=== PATIENT | male | born 1995 | race American Indian/Alaskan Native ===

== ENCOUNTER 2017-07-03 12:42 | Emergency (ER) | payer OTHER ==
[2017-07-03 13:07] LABS: Basophils % (Auto) 0.8 % (0.0-1.8); Eosinophils % (Auto) 2.8 % (0.0-4.3); Hematocrit 44.7 % (35.5-45.6); Hemoglobin 14.8 gm/dl (11.8-15.2); Mean Corpuscular HGB Conc 33 % (32-34); Mean Corpuscular Hemoglobin 30 pg (28-32); Mean Corpuscular Volume 91 fl (84-94); Platelet Count 277 K/mm3 (140-440); Red Blood Count 4.93 M/mm3 (3.65-5.03); Red Cell Distribution Width 13.5 % (13.2-15.2); White Blood Count 4.9 K/mm3 (4.5-11.0)
[2017-07-03 13:22] LABS: Anion Gap 18 mmol/L; Blood Urea Nitrogen 10 mg/dL (9-20); Calcium 8.9 mg/dL (8.4-10.2); Carbon Dioxide 24 mmol/L (22-30); Chloride 106.3 mmol/L (98-107); Glucose 91 mg/dL (75-100); Potassium 3.9 mmol/L (3.6-5.0); Sodium 144 mmol/L (137-145)
--- NOTE | 2017-07-03 13:40 | Emergency Department Report ---
HPI - General Chief Complaint: Psych Time Seen by Provider: 07/03/17 13:21 - HPI HPI: Room 16 The patient is a 21-year-old male presenting with a chief complaint of increased aggression. The patient's mother brings the patient in because she states for the past 8 months patient is suffering from visual and auditory hallucinations. The patient denies this but the mother states that she hears him talking to himself all night and responding to internal stimuli. The patient states he feels "boxed in" and has a lot of aggression. 8 months ago the patient got arrested secondary to this aggression and wasn't [facility] for 4 months. The mother states once he got out the same behavior continued. The mother states the patient walks around all night and does not sleep. The patient states he became angry today and punched a sheet rock wall injuring his right hand Location: Mental state, right hand Duration: 8 months Quality: Responding to internal stimuli Severity: Moderate Modifying factors: [see above] Context: [see above] Mode of transportation: [not driving] ED Past Medical Hx - Past Medical History Previous Medical History?: No - Surgical History Past Surgical History?: No - Family History Family history: no significant - Social History Smoking Status: Current Some Day Smoker Substance Use Type: None (denies illicit drug use) - Medications Home Medications: Home Medications Medication Instructions Recorded Confirmed Last Taken Type No Known Home Medications [No 07/03/17 07/03/17 Unknown History Reported Home Medications] ED Review of Systems ROS: Stated complaint: MH EVAL/HEARING VOICES Other details as noted in HPI Comment: All other systems reviewed and negative Constitutional: denies: chills, fever Eyes: denies: eye pain, eye discharge, vision change ENT: denies: ear pain, throat pain Respiratory: denies: cough, shortness of breath, wheezing Cardiovascular: denies: chest pain, palpitations Endocrine: no symptoms reported Genitourinary: denies: urgency, dysuria Musculoskeletal: arthralgia Skin: other (abrasion to right hand) Neurological: denies: headache, weakness, paresthesias Psychiatric: auditory hallucinations, visual hallucinations. denies: suicidal thoughts Hematological/Lymphatic: denies: easy bleeding, easy bruising Physical Exam - Physical Exam Vital Signs: Vital Signs 07/03/17 12:46 Temperature 97.8 F Pulse Rate 73 Respiratory 16 Rate Blood Pressure 129/77 O2 Sat by Pulse 99 Oximetry Physical Exam: GENERAL: The patient is well-developed well-nourished male sitting on stretcher not appearing to be in acute distress. [] HEENT: Normocephalic. Atraumatic. Extraocular motions are intact. Patient has moist mucous membranes. NECK: Supple. No meningitic signs are noted. There is no adenopathy noted. CHEST/LUNGS: Clear to auscultation. There is no respiratory distress noted. HEART/CARDIOVASCULAR: Regular. There is no tachycardia. There is no gallop rub or murmur. ABDOMEN: Abdomen is soft, nontender. Patient has normal bowel sounds. There is no abdominal distention. SKIN: There is no rash. There is no edema. There is no diaphoresis. There are abrasions overlying the fingers of the right hand. No lacerations NEURO: The patient is awake, alert, and oriented. The patient is cooperative. The patient has no focal neurologic deficits. The patient has normal speech and gait. Cranial nerves II through XII grossly intact, no drift. Negative Romberg MUSCULOSKELETAL: There is slight tenderness to palpation at the MCP of the ring finger of the right hand. No obvious deformity seen ED Course Vital Signs 07/03/17 12:46 Temperature 97.8 F Pulse Rate 73 Respiratory 16 Rate Blood Pressure 129/77 O2 Sat by Pulse 99 Oximetry ED Medical Decision Making - Lab Data Result diagrams: 07/03/17 12:54 07/03/17 12:54 Laboratory Tests 07/03/17 07/03/17 07/03/17 12:54 12:54 12:54 WBC 4.9 RBC 4.93 Hgb 14.8 Hct 44.7 MCV 91 MCH 30 MCHC 33 RDW 13.5 Plt Count 277 Lymph % (Auto) 42.7 H Coke % (Auto) 8.8 H Eos % (Auto) 2.8 Baso % (Auto) 0.8 Lymph # 2.1 Coke # 0.4 Eos # 0.1 Baso # 0.0 Seg Neutrophils % 44.9 Seg Neutrophils # 2.2 Sodium 144 Potassium 3.9 Chloride 106.3 Carbon Dioxide 24 Anion Gap 18 BUN 10 Creatinine 0.8 Estimated GFR > 60 BUN/Creatinine Ratio 12.50 Glucose 91 Calcium 8.9 Urine Bilirubin Urine RBC (Auto) U Epithel Cells (Auto) Urine Opiates Screen Urine Methadone Screen Ur Barbiturates Screen Ur Phencyclidine Scrn Ur Amphetamines Screen U Benzodiazepines Scrn Urine Cocaine Screen Plasma/Serum Alcohol < 0.01 07/03/17 07/03/17 Unknown Unknown WBC RBC Hgb Hct MCV MCH MCHC RDW Plt Count Lymph % (Auto) Coke % (Auto) Eos % (Auto) Baso % (Auto) Lymph # Coke # Eos # Baso # Seg Neutrophils % Seg Neutrophils # Sodium Potassium Chloride Carbon Dioxide Anion Gap BUN Creatinine Estimated GFR BUN/Creatinine Ratio Glucose Calcium Urine Bilirubin Neg Urine RBC (Auto) 2.0 U Epithel Cells (Auto) < 1.0 Urine Opiates Screen Presumptive negative Urine Methadone Screen Presumptive negative Ur Barbiturates Screen Presumptive negative Ur Phencyclidine Scrn Presumptive negative Ur Amphetamines Screen Presumptive negative U Benzodiazepines Scrn Presumptive negative Urine Cocaine Screen Presumptive negative Plasma/Serum Alcohol - Radiology Data Radiology results: report reviewed (CT head), image reviewed (CT head, right hand x-ray) interpreted by me: Right hand x-ray-no acute fractures CT head (read by radiologist)-cranial CT scan within normal limits - Differential Diagnosis schizophrenia, bipolar disorder, psychosis NOS, adjustment disorder, boxer' Critical care attestation.: If time is entered above; I have spent that time in minutes in the direct care of this critically ill patient, excluding procedure time. ED Disposition Clinical Impression: Psychosis Disposition: DC/TX-65 PSY HOSP/PSY UNIT Is pt being admited?: No Does the pt Need Aspirin: No Condition: Fair Referrals: PRIMARY CARE, [Primary Care Provider] - 3-5 Days Time of Disposition: 14:06 (awaiting acceptance)
[2017-07-03 13:44] LABS: Urine Drugs of Abuse Note Disclamer
--- NOTE | 2017-07-03 13:55 | Cat Scan Report ---
CRANIAL CT SCAN: History: Headache. Serial contiguous axial images were obtained through the cranium. Intravenous contrast material was not administered. The ventricles are normal in size and appearance. There is no mass effect or midline shift. No areas of abnormally increased or decreased attenuation are seen. No mass lesion is seen. The mastoid air cells and visualized portions of the sinuses are normal. IMPRESSION: Cranial CT scan within normal limits.
[2017-07-03 13:57] LABS: Bilirubin,Urine NEG (Negative); Blood,Urine NEG (Negative); Ketones,Urine NEG (Negative); Leukocyte Esterase,Urine NEG (Negative); Mucus,Urine FEW /HPF; Nitrite,Urine NEG (Negative); Protein,Urine <15 mg/dL mg/dL (Negative); Urobilinogen,Urine < 2.0 mg/dL (<2.0); WBC,Urine < 1.0 /HPF (0.0-6.0)
--- NOTE | 2017-07-03 14:07 | XRay Report ---
RIGHT HAND, 3 views: History: Pain. The bony architecture is intact. Bony alignment is normal. No soft tissue abnormalities are seen. The joint spaces appear preserved. IMPRESSION: No acute abnormality is appreciated.
--- NOTE | 2017-07-04 13:06 | Consultation ---
History of Present Illness - Reason for Consult Consult date: 07/04/17 Reason for consult: Mental Health Evaluation Requesting physician: HIWOT GOMEZ - Chief Complaint Chief complaint: "I don't sleep sometimes" - History of Present Psychiatric Illness The patient is a 21-year-old male presenting with a chief complaint of increased aggression. Today patient is calm and cooperative during assessment. He stated that he don't remember talking to himself prior to coming to [facility]. He did admit to punching the wall at a hotel because he got angry. He could not tell me why he got angry. He stated that he noticed that he have "good and bad days." Per the patient, the "good days" he don't want to sleep and have lots of energy. He stated being very irritable and angry when he does not get much sleep. Per his mother Cathy Monroe [phone], she stated witnessing her son have conversation with himself, possibly responding to internal stimuli. She stated that he does not sleep "at all." She stated recently her son got angry and walked from [place], [place] to [place], [place] "barefooted" prior to being up for more than 24 hours. The patient denies HI/SIs. He would not confirm or deny perceptional disturbances. He did admit to erratic sleep, but denies a poor appetite. He admit to marijuana use, but denies alcohol consumption. Medications and Allergies Allergies Allergy/AdvReac Type Severity Reaction Status Date / Time No Known Allergies Allergy Unverified 07/03/17 12:46 Home Medications Medication Instructions Recorded Confirmed Last Taken Type No Known Home Medications [No 07/03/17 07/03/17 Unknown History Reported Home Medications] Past psychiatric history - Past Medical History Past Medical History: No medical history Past Surgical History: No surgical history - past Psychiatric treatment and history psychiatric treatment history: Denies a psy hx. Per collateral information from his mom, his father side of family has a hx of Bipolar DO. - Social History Social history: lives with family (G[facility]) Mental Status Exam - Vital signs Last Vital Signs Temp 98.6 F 07/03/17 19:21 Pulse 53 L 07/03/17 19:21 Resp 18 07/04/17 11:00 BP 108/69 07/03/17 19:21 Pulse Ox 99 07/03/17 19:21 - Exam Narrative exam: ROS: (+) possibly manic, (-) depression MSE: Appearance: calm, cooperative Behavior: regular eye contact Speech: regular rate and tone Mood: "up and down sometimes" Affect: labile Thought Process: circumstantial Thought Content: denies SI/HI's, would not confirm or deny AVH's Motor Activity: ambulatory Cognition: A/Ox 3 Insight: variable Judgment: variable Results Result Diagrams: 07/03/17 12:54 07/03/17 12:54 Abnormal lab results 07/03/17 Range/Units 12:54 Lymph % (Auto) 42.7 H (13.4-35.0) % [place] % (Auto) 8.8 H (0.0-7.3) % All other labs normal. Assessment and Plan Assessment and plan: Impression: Unspecified Mood DO. Possibly manic. Substance Use DO (marijuana). Today patient is calm and cooperative during assessment. Patient would not confirm or deny perceptional disturbances. DDx: Bipolar DO, R/O MDD Recommendation/Plan: Continue 1013 with placement to inpatient psy services. Start Depakote 500 mg PO BID for mood and Seroquel 200 mg PO HS for mood/ psychotic symptoms. Discussed possible metabolic side effects of Seroquel with patient.
[2017-07-04 14:18] LABS: Alanine Aminotransferase 6 units/L (7-56); Alkaline Phosphatase 51 units/L (35-129)
--- NOTE | 2017-07-05 16:09 | Progress Note ---
Subjective - Reason for Consult Consult date: 07/05/17 Reason for consult: follow up - Chief Complaint Chief complaint: "I've been stressed out and frustrated." The patient is a 21-year-old male presented with a chief complaint of increased aggression. Today patient is calm and cooperative during assessment. Eye contact is avoidant. He states he was frustrated with his mother. He did admit to punching the wall at a hotel because he got angry. He could not tell me why he got angry. He acknowledged his mother might have been worried about his behavior. He reports a decreased need for sleep and has minimal insight into the presentation described in his initial consultation. The patient denies HI/ SIs. He denied perceptual disturbances. Mental Status Exam - Exam Narrative exam: ROS: (-) depression MSE: Appearance: calm, cooperative Behavior: regular eye contact Speech: regular rate and tone Mood: "up and down sometimes" Affect: labile Thought Process: circumstantial Thought Content: denies SI/HI's, would not confirm or deny AVH's Motor Activity: ambulatory Cognition: A/Ox 3 Insight: variable Judgment: variable Assessment and plan: Impression: Unspecified Mood DO. Substance Use DO (marijuana). Today patient is calm and cooperative during assessment. Patient would not confirm or deny perceptional disturbances. DDx: Bipolar DO, R/O MDD Recommendation/Plan: Continue 1013 with placement to inpatient psy services. Continue Depakote 500 mg PO BID for mood and Seroquel 200 mg PO HS for mood/ psychotic symptoms. Mental Status Exam - Vital signs Last Vital Signs Temp 98 F 07/05/17 10:00 Pulse 87 07/05/17 10:00 Resp 18 07/05/17 10:00 BP 109/62 07/05/17 10:00 Pulse Ox 98 07/05/17 10:00
--- NOTE | 2017-07-06 16:45 | Progress Note ---
Subjective - Reason for Consult Consult date: 07/06/17 Reason for consult: follow up - Chief Complaint Chief complaint: "I'm fine." The patient is a 21-year-old male presented with a chief complaint of increased aggression. Today patient is calm and cooperative during assessment. There have been no behavioral disturbances during his ER stay. Eye contact is avoidant but he is otherwise cooperative with interview. He states he was frustrated with his mother. He did admit to punching the wall at a hotel because he got angry. He reports a decreased need for sleep and states that is how he has always been. He reports the medications have helped him sleep. The patient denies HI/ SIs. He denied perceptual disturbances. He has consistently denied SI/HI and perceptual disturbances. Mental Status Exam - Exam Narrative exam: ROS: (-) depression (-) psychosis MSE: Appearance: calm, cooperative Behavior: regular eye contact Speech: regular rate and tone Mood: "fine." Affect: constricted Thought Process: logical Thought Content: denies SI/HI/AVH Motor Activity: ambulatory Cognition: A/Ox 3 Insight: variable Judgment: variable Assessment and plan: Impression: Unspecified Mood DO. Substance Use DO (marijuana). Today patient is calm and cooperative during assessment. He has consistently denied homicidal and suicidal ideation. DDx: Bipolar DO, R/O MDD Recommendation/Plan: Rescind 1013. He is not a threat to himself or others. Psychosis not evident. His thoughts are organized, logical, and linear. He has maintained appropriate behavior during his stay. He is appropriately responsive during the interview. Continue Depakote 500 mg PO BID for mood and Seroquel 200 mg PO HS for mood/ psychotic symptoms. He is advised to abstain from all mood altering or illicit substances. Outpatient mental health referrals will be provided. Mental Status Exam - Vital signs Last Vital Signs Temp 97.5 F L 07/06/17 08:10 Pulse 91 H 07/06/17 08:10 Resp 16 07/06/17 08:12 BP 113/75 07/06/17 08:10 Pulse Ox 100 07/06/17 08:12
--- NOTE | 2017-07-07 11:13 | Progress Note ---
Subjective - Reason for Consult Consult date: 07/07/17 Reason for consult: Psychiatry Follow up - Chief Complaint Chief complaint: "Feel rested" The patient is a 21-year-old male presented with a chief complaint of increased aggression. Today patient is calm and cooperative during assessment. Today patient is calm and cooperative during the assessment. He stated getting " plenty of rest" and look forward to being discharged. He stated that he will follow-up with [facility] for outpatient psy services once discharged. I spoke with his mother Cathy Monroe and she stated that her son can return home. He denies SI/HI's, AVH's, and depression. Mental Status Exam - Vital signs Last Vital Signs Temp 98.3 F 07/06/17 22:00 Pulse 78 07/06/17 22:00 Resp 18 07/07/17 09:33 BP 103/74 07/06/17 22:00 Pulse Ox 100 07/07/17 09:33 - Exam Narrative exam: MSE: Appearance: calm, cooperative Behavior: regular eye contact Speech: regular rate and tone Mood: "rested" Affect: congruent to mood Thought Process: linear Thought Content: denies SI/HI's and AVH's Motor Activity: lying in bed Cognition: A/Ox 3 Insight: fair Judgment: fair Assessment and Plan Impression: Unspecified Mood DO. Substance Use DO (marijuana). Today patient is calm and cooperative during assessment. No threat to self or others. VA 71.4. Recommendation/Plan: Rescind 1013. Continue Depakote 500 mg PO BID for mood and Seroquel 200 mg PO HS for mood/psychotic symptoms. He is advised to abstain from all mood altering or illicit substances. Outpatient mental health referrals provided to patient ([facility]). Discussed the importance to follow-up with outpatient psy services for future lab work (Depakote) with patient and his mother Cathy Monroe. Discussed the possible metabolic side effects of Seroquel and the side effects of Depakote with patient and his mother.
[2017-07-07 12:04] VITALS: BP 100/67
--- NOTE | 2017-07-07 15:53 | Emergency Department Report ---
ED General Adult HPI - General Chief complaint: Psych Stated complaint: MH EVAL/HEARING VOICES Time Seen by Provider: 07/03/17 13:21 Source: patient, family Mode of arrival: Ambulatory Limitations: No Limitations - History of Present Illness Severity scale (0 -10): 0 - Related Data Home Medications Medication Instructions Recorded Confirmed Last Taken No Known Home Medications [No 07/03/17 07/03/17 Unknown Reported Home Medications] Allergies Allergy/AdvReac Type Severity Reaction Status Date / Time No Known Allergies Allergy Unverified 07/03/17 12:46 ED Review of Systems ROS: Stated complaint: MH EVAL/HEARING VOICES Other details as noted in HPI Constitutional: denies: chills, fever Eyes: denies: eye pain, eye discharge, vision change ENT: denies: ear pain, throat pain Respiratory: denies: cough, shortness of breath, wheezing Cardiovascular: denies: chest pain, palpitations Endocrine: no symptoms reported Genitourinary: denies: urgency, dysuria Musculoskeletal: arthralgia Skin: other (abrasion to right hand) Neurological: denies: headache, weakness, paresthesias Psychiatric: auditory hallucinations, visual hallucinations. denies: suicidal thoughts Hematological/Lymphatic: denies: easy bleeding, easy bruising ED Past Medical Hx - Past Medical History Previous Medical History?: No - Surgical History Past Surgical History?: No - Social History Smoking Status: Current Some Day Smoker Substance Use Type: None (denies illicit drug use) - Medications Home Medications: Home Medications Medication Instructions Recorded Confirmed Last Taken Type No Known Home Medications [No 07/03/17 07/03/17 Unknown History Reported Home Medications] ED Physical Exam - General Limitations: No Limitations ED Course Vital Signs 07/03/17 07/03/17 07/04/17 12:46 19:21 11:00 Temperature 97.8 F 98.6 F 98.4 F Pulse Rate 73 53 L 71 Respiratory 16 18 16 Rate Blood Pressure 129/77 Blood Pressure 108/69 102/81 [Right] O2 Sat by Pulse 99 99 18 L Oximetry 07/04/17 07/05/17 07/05/17 19:45 10:00 17:00 Temperature 98.9 F 98 F 98 F Pulse Rate 94 H 87 87 Respiratory 16 18 18 Rate Blood Pressure Blood Pressure 121/74 109/62 112/65 [Right] O2 Sat by Pulse 100 98 99 Oximetry 07/06/17 07/06/17 07/06/17 08:10 08:12 22:00 Temperature 97.5 F L 98.3 F Pulse Rate 91 H 78 Respiratory 15 16 16 Rate Blood Pressure Blood Pressure 113/75 103/74 [Right] O2 Sat by Pulse 100 100 97 Oximetry 07/07/17 07/07/17 09:33 12:03 Temperature 98.5 F Pulse Rate 97 H Respiratory 18 20 Rate Blood Pressure Blood Pressure 100/67 [Right] O2 Sat by Pulse 100 100 Oximetry ED Medical Decision Making - Lab Data Result diagrams: 07/03/17 12:54 07/03/17 12:54 - Medical Decision Making Patient with 1013 was ended. Psychiatry is comfortable with plan. They've discussed continuing his Depakote and Seroquel. Please follow-up with her outpatient resources as needed. Critical care attestation.: If time is entered above; I have spent that time in minutes in the direct care of this critically ill patient, excluding procedure time. ED Disposition Clinical Impression: Psychosis Disposition: DC-01 TO HOME OR SELFCARE Is pt being admited?: No Condition: Fair Instructions: Brief Psychotic Disorder (ED) Additional Instructions: Please continue to take your Seroquel and Depakote. Follow up as needed with your outpatient psychiatric resources. Referrals: PRIMARY CARE, [Primary Care Provider] - 3-5 Days Forms: Accompanied Note
== END 2017-07-07 18:27 | disposition home or self-care (01) ==
LOC: ED 12:42 → EEVIPCON 12:42 → ED 07-07 18:27
DX: F29 Unspecified psychosis not due to a substance or known physiological condition (principal); F17.200 Nicotine dependence, unspecified, uncomplicated
CPT/HCPCS: 36415; 70450; 73130; 80048; 80164; 80307; 81001; 84075; 84450; 84460; 85025; 99285; G0480; 80320

== ENCOUNTER 2017-08-02 19:28 | Emergency (ER) | payer SELFPAY ==
[2017-08-02 20:40] LABS: Urine Drugs of Abuse Note Disclamer
--- NOTE | 2017-08-02 20:40 | Emergency Department Report ---
ED Psych HPI - General Chief Complaint: Psych Stated Complaint: COMBATIVE Time Seen by Provider: 08/02/17 20:30 Source: patient, police - History of Present Illness Initial Comments: 28 years old male with history of schizophrenia brought in by police after he got into an argument with someone. Mother want patient to be admitted to [facility]. Patient is hearing voices and he believed that somebody is watching him and want to destroy his him. Patient denied any homicidal or suicidal ideation. -: Gradual Associated Psychiatric Symptoms: racing thoughts, auditory hallucinations, delusions History of same: Yes Quality: constant Worsens With: none Treatments Prior to Arrival: none - Related Data Home Medications Medication Instructions Recorded Confirmed Last Taken No Known Home Medications [No 07/03/17 08/02/17 Unknown Reported Home Medications] Allergies Allergy/AdvReac Type Severity Reaction Status Date / Time No Known Allergies Allergy Unverified 07/03/17 12:46 ED Review of Systems ROS: Stated complaint: COMBATIVE Other details as noted in HPI Comment: All other systems reviewed and negative Constitutional: denies: chills, fever Respiratory: denies: cough, shortness of breath Cardiovascular: denies: chest pain Gastrointestinal: denies: abdominal pain, nausea, vomiting, diarrhea Genitourinary: denies: urgency, dysuria Neurological: denies: headache, weakness Psychiatric: auditory hallucinations. denies: depression, visual hallucinations , homicidal thoughts, suicidal thoughts ED Past Medical Hx - Social History Smoking Status: Current Some Day Smoker Substance Use Type: None (denies illicit drug use) - Medications Home Medications: Home Medications Medication Instructions Recorded Confirmed Last Taken Type No Known Home Medications [No 07/03/17 08/02/17 Unknown History Reported Home Medications] ED Physical Exam - General Limitations: No Limitations General appearance: alert, in no apparent distress - Head Head exam: Present: atraumatic, normocephalic - Eye Eye exam: Present: normal appearance Pupils: Present: normal accommodation - ENT ENT exam: Present: normal exam - Neck Neck exam: Present: normal inspection, full ROM - Respiratory Respiratory exam: Present: normal lung sounds bilaterally. Absent: wheezes, rales - Cardiovascular Cardiovascular Exam: Present: regular rate, normal rhythm, normal heart sounds - GI/Abdominal GI/Abdominal exam: Present: soft. Absent: distended, tenderness, guarding, rebound, rigid, mass, bruit, pulsatile mass - Extremities Exam Extremities exam: Present: normal inspection - Back Exam Back exam: Present: normal inspection. Absent: CVA tenderness (R), CVA tenderness (L) - Neurological Exam Neurological exam: Present: alert, oriented X3, CN II-XII intact - Psychiatric Psychiatric exam: Present: flat affect. Absent: depressed, agitated, manic, homicidal ideation, suicidal ideation - Skin Skin exam: Present: warm, intact, normal color ED Course Vital Signs 08/02/17 20:15 Temperature 97.4 F L Pulse Rate 89 Respiratory 18 Rate Blood Pressure 106/76 [Left] O2 Sat by Pulse 99 Oximetry ED Medical Decision Making - Lab Data Result diagrams: 08/02/17 20:46 08/02/17 20:46 Critical care attestation.: If time is entered above; I have spent that time in minutes in the direct care of this critically ill patient, excluding procedure time. ED Disposition Clinical Impression: Acute psychosis Disposition: DC/TX-65 PSY HOSP/PSY UNIT Is pt being admited?: No Condition: Stable Referrals: PRIMARY CARE [Primary Care Provider] - 3-5 Days
[2017-08-02 20:55] LABS: Bilirubin,Urine NEG (Negative); Blood,Urine NEG (Negative); Ketones,Urine TR mg/dL (Negative); Leukocyte Esterase,Urine NEG (Negative); Mucus,Urine 3+ /HPF; Nitrite,Urine NEG (Negative)
[2017-08-02 21:05] LABS: Basophils % (Auto) 0.6 % (0.0-1.8); Eosinophils % (Auto) 1.3 % (0.0-4.3); Hematocrit 48.7 % (35.5-45.6); Mean Corpuscular HGB Conc 33 % (32-34); Mean Corpuscular Hemoglobin 30 pg (28-32); Mean Corpuscular Volume 91 fl (84-94); Platelet Count 243 K/mm3 (140-440); Red Blood Count 5.37 M/mm3 (3.65-5.03); Red Cell Distribution Width 13.9 % (13.2-15.2); White Blood Count 6.8 K/mm3 (4.5-11.0)
[2017-08-02 21:20] LABS: Alanine Aminotransferase 9 units/L (7-56); Albumin 4.3 g/dL (3.9-5); Albumin/Globulin Ratio 1.5 %; Alkaline Phosphatase 59 units/L (35-129); Anion Gap 17 mmol/L; Blood Urea Nitrogen 11 mg/dL (9-20); Calcium 9.5 mg/dL (8.4-10.2); Carbon Dioxide 24 mmol/L (22-30); Chloride 100.8 mmol/L (98-107); Glucose 137 mg/dL (75-100); Potassium 3.7 mmol/L (3.6-5.0); Sodium 138 mmol/L (137-145); Total Protein 7.1 g/dL (6.3-8.2)
--- NOTE | 2017-08-04 12:31 | Consultation ---
History of Present Illness - Reason for Consult Consult date: 08/04/17 Reason for consult: Mental Health Evaluation Requesting physician: LIZ RICKS - Chief Complaint Chief complaint: "It's an illegal operation going on" - History of Present Psychiatric Illness 28 years old male with presenting to [facility] for psychosis. This patient is known to me. Today the patient is calm and cooperative during the assessment. He stated that he "trashed" the hotel room he is staying in with is mother. He stated that it's a "illegal operation going on" currently and he does not need to be hospitalized. He felt that someone or something is out to harm him. Per his mother Cathy Monroe, she stated that he destroyed their hotel room because he felt paranoid and threatened. She stated that she had to call the police to calm him down, so they decided to bring him to the hospital. She stated that he haven't slept consistently for days. She stated that her son has been irritable and argumentative when she try to talk with him. During our conversation, the patient was looking around and had to be redirected several times, possibly responding to some type stimuli (distracted/paranoid). He denies SI/HI's. Patient would not confirm or deny AVH's. He reported that he smoke marijuana "sometimes," but denies alcohol consumption (etoh). Per his mother, she was scheduled to take her son to [facility] for outpatient psy services. Medications and Allergies Allergies Allergy/AdvReac Type Severity Reaction Status Date / Time No Known Allergies Allergy Unverified 07/03/17 12:46 Home Medications Medication Instructions Recorded Confirmed Last Taken Type RX: No Known Home Medications [No 07/03/17 08/02/17 Unknown History Reported Home Medications] Past psychiatric history - Past Medical History Past Medical History: No medical history Past Surgical History: No surgical history - past Psychiatric treatment and history Psych: Psychosis psychiatric treatment history: Pervious admission to [facility] for psychosis. Denies a fam psy hx. - Social History Social history: lives with family (HS graduate) Mental Status Exam - Vital signs Last Vital Signs Temp 97.9 F 08/04/17 08:00 Pulse 92 H 08/04/17 08:00 Resp 16 08/04/17 08:00 BP 107/72 08/04/17 08:00 Pulse Ox 100 08/04/17 08:00 - Exam Narrative exam: ROS: (+) psychosis MSE: Appearance: calm, cooperative Behavior: regular eye contact Speech: regular rate and tone Mood: "nothing is wrong with me" Affect: labile Thought Process: circumstantial Thought Content: denies SI/HI's and AVH's, delusional, paranoid Motor Activity: ambulatory Cognition: A/O x3 Insight: limited Judgment: limited Results Result Diagrams: 08/02/17 20:46 08/02/17 20:46 All other labs normal. Assessment and Plan Assessment and plan: Impression: Unspecified Mood DO with psychotic features. Today the patient is calm and cooperative during the assessment. Patient experiencing paranoia. DDx: Bipolar DO, Schizoaffective DO Recommendation/Plan: Continue 1013 with placement to inpatient psy services. Start Depakote 500 mg PO BID for mood, Risperdal 1 mg PO HS for psychotic symptoms/mood and Cogentin 0.5 mg PO HS for EPS prevention. Will titrate the Risperdal with intentions to administer Invega Sustenna. Discussed possible metabolic side effects of Risperdal with patient.
[2017-08-04] MEDS ORDERED: RisperDAL PO SCH (22:00)
[2017-08-04] MEDS: COGENTIN PO SCH (22:15)
--- NOTE | 2017-08-05 09:02 | Progress Note ---
Subjective - Reason for Consult Consult date: 08/05/17 Reason for consult: Psychiatry Follow-up - Chief Complaint Chief complaint: "I feel tired" 28 years old male with [facility]. This patient is known to me. Today the patient is calm and cooperative during the assessment. He stated that he feel tired, but slept "okay" last night. He stated that he ate his breakfast this morning and performed his ADL's. He denies a "illegal operation is going on now," but stated it may happen. Patient was more engaging compared to his previous assessment. He denies SI/HI's and AVH's. He denies any side effects of his medications. Mental Status Exam - Vital signs Last Vital Signs Temp 98.2 F 08/04/17 19:59 Pulse 62 08/04/17 19:59 Resp 16 08/04/17 19:59 BP 115/59 08/04/17 19:59 Pulse Ox 99 08/04/17 19:59 - Exam Narrative exam: MSE: Appearance: calm, cooperative Behavior: regular eye contact Speech: regular rate and tone Mood: "tired" Affect: labile Thought Process: circumstantial Thought Content: denies SI/HI's and AVH's Motor Activity: ambulatory Cognition: A/O x3 Insight: variable Judgment: variable Assessment and Plan Impression: Unspecified Mood DO with psychotic features. Today the patient is calm and cooperative during the assessment. Recommendation/Plan: Continue 1013 with placement to inpatient psy services. Continue Depakote 500 mg PO BID for mood and Cogentin 0.5 mg PO HS for EPS prevention. Start Invega 6 mg PO HS 08/05, Invega 9 mg PO HS 08/06, and Invega Sustenna 234 mg IM 08/07 for mood/psychotic symptoms. Discussed possible metabolic side effects of Invega with patient.
[2017-08-05] MEDS ORDERED: RisperDAL PO SCH (22:00)
[2017-08-05] MEDS ORDERED: INVEGA 6 MG PO ONE (22:00)
[2017-08-05] MEDS ORDERED: INVEGA PO ONE (22:00)
[2017-08-05] MEDS: COGENTIN PO SCH (22:15)
[2017-08-06] MEDS ORDERED: INVEGA PO ONE ×2 (22:00)
[2017-08-06] MEDS ORDERED: INVEGA 6 MG PO ONE (22:00)
[2017-08-06] MEDS ORDERED: INVEGA 9 MG PO ONE (22:00)
[2017-08-06] MEDS: COGENTIN PO SCH (22:42)
--- NOTE | 2017-08-07 11:26 | Progress Note ---
Subjective - Reason for Consult Consult date: 08/07/17 Reason for consult: Psychiatry Follow-up - Chief Complaint Chief complaint: "I am okay" 28 years old male with presenting to [facility] for psychosis. This patient is known to me. Today the patient is calm and cooperative during the assessment. He stated that he feel okay. He denies a "illegal operation is going on now." He could not tell me more about what happened at the hotel. He did state that he could react aggressively if he feels threatened. Per collateral from his mother , patient was alone in the hotel room when he destroyed some of the furniture. He denies SI/HI's and AVH's. Patient was administered Invega 6 mg PO HS x 2 days with no side effects per the patient. Mental Status Exam - Vital signs Last Vital Signs Temp 98.2 F 08/06/17 19:45 Pulse 85 08/06/17 19:45 Resp 16 08/06/17 19:45 BP 102/53 08/06/17 19:45 Pulse Ox 97 08/06/17 19:45 - Exam Narrative exam: MSE: Appearance: calm, cooperative Behavior: regular eye contact Speech: regular rate and tone Mood: "okay" Affect: labile Thought Process: circumstantial Thought Content: denies SI/HI's and AVH's Motor Activity: ambulatory Cognition: A/O x3 Insight: variable Judgment: variable Assessment and Plan mpression: Unspecified Mood DO with psychotic features. Today the patient is calm and cooperative during the assessment. Recommendation/Plan: Evaluate 1013 in 24 hours to determine proper dispo. Continue Depakote 500 mg PO BID for mood and Cogentin 0.5 mg PO HS for EPS prevention. Invega Sustenna 234 mg IM one time mood/psychotic symptoms. Discussed possible metabolic side effects of Invega with patient.
[2017-08-07] MEDS ORDERED: INVEGA SUSTENNA IM ONE (12:00)
[2017-08-07] MEDS ORDERED: INVEGA 234 MG IM ONE (12:00)
[2017-08-07] MEDS: COGENTIN PO SCH (22:37)
--- NOTE | 2017-08-08 10:50 | Progress Note ---
Subjective - Reason for Consult Consult date: 08/08/17 Reason for consult: Psychiatry Follow-up - Chief Complaint Chief complaint: "I feel better" 28 years old male with presenting to [facility] for psychosis. This patient is known to me. Today the patient is calm and cooperative during the assessment. He stated that he would like to be discharged soon. He denies being threatened or paranoia. He denies SI/HI's and AVH's. He denies any side effects of the Invega injection. Per the staff, no behavioral disturbances overnight. Mental Status Exam - Vital signs Last Vital Signs Temp 97.8 F 08/07/17 22:37 Pulse 59 L 08/07/17 22:37 Resp 16 08/07/17 22:38 BP 113/63 08/07/17 22:37 Pulse Ox 100 08/07/17 22:37 - Exam Narrative exam: MSE: Appearance: calm, cooperative Behavior: regular eye contact Speech: regular rate and tone Mood: "okay" Affect: congruent to mood Thought Process: linear Thought Content: denies SI/HI's and AVH's Motor Activity: ambulatory Cognition: A/O x3 Insight: fair Judgment: fair Assessment and Plan Impression: Unspecified Mood DO with psychotic features. Today the patient is calm and cooperative during the assessment. Patient is no threat to self or others. Recommendation/Plan: Rescind 1013. Continue Depakote 500 mg PO BID for mood and Cogentin 0.5 mg PO HS for EPS prevention. Start Invega 6 mg PO HS for mood (7 pills). Discussed possible metabolic side effects of Invega with patient. Discussed with patient and his mother Cathy Monroe that he can use [facility] for outpatient psy services (Dr Bruno). Patient will receive next Invega injection in 8 days at [facility]. The patient has to show up at [facility] Friday (12 Aug 2017) or Friday (13 Aug 2017) with his ID, proof of income, and his discharge paperwork from [facility]. If patient is unemployed, a wage statement from the Department of Labor will be suffice.
[2017-08-08 19:17] VITALS: BP 103/76
== END 2017-08-08 19:20 | disposition home or self-care (01) ==
LOC: EEVIPCON 19:28 → ED 19:28
DX: F29 Unspecified psychosis not due to a substance or known physiological condition (principal); F17.210 Nicotine dependence, cigarettes, uncomplicated
CPT/HCPCS: 36415; 80053; 80164; 80307; 81001; 85025; 99285; G0480; 80320

== ENCOUNTER 2017-11-24 07:33 | Emergency (ER) | payer SELFPAY ==
[2017-11-24 09:05] LABS: Basophils # (Auto) 0.1 K/mm3 (0.0-0.1); Basophils % (Auto) 0.8 % (0.0-1.8); Eosinophils # (Auto) 0.1 K/mm3 (0.0-0.4); Eosinophils % (Auto) 0.7 % (0.0-4.3); Hematocrit 47.1 % (35.5-45.6); Hemoglobin 15.7 gm/dl (11.8-15.2); Lymphocytes # (Auto) 2.7 K/mm3 (1.2-5.4); Lymphocytes % (Auto) 34.8 % (13.4-35.0); Mean Corpuscular HGB Conc 33 % (32-34); Mean Corpuscular Hemoglobin 30 pg (28-32); Mean Corpuscular Volume 91 fl (84-94); Monocytes # (Auto) 0.8 K/mm3 (0.0-0.8); Monocytes % (Auto) 10.6 % (0.0-7.3); Platelet Count 300 K/mm3 (140-440); Red Cell Distribution Width 14.1 % (13.2-15.2)
[2017-11-24 09:20] LABS: BUN/Creatinine Ratio 16; Blood Urea Nitrogen 14 mg/dL (9-20); Calcium 9.6 mg/dL (8.4-10.2); Hemolysis Index 30
--- NOTE | 2017-11-24 12:55 | Emergency Department Report ---
ED Psych HPI - General Chief Complaint: Psych Stated Complaint: MENTAL HEALTH EVALUATION Time Seen by Provider: 11/24/17 12:53 Source: patient Mode of arrival: Ambulatory - History of Present Illness Initial Comments: Mother states patient has been noncompliant with his [place] and divalproex acid for the past several days. He has been "seeing snakes and hearing things". He received I presume a long acting antipsychotic and his last clinic visit. However the mother states he was just told to come back in 3 months if it is necessary. In any case the patient obviously has suffered psychiatric decompensation of his chronic schizophrenia. When I speak to him he has no specific complaints. However he refuses to take oral medication and is somewhat agitated. MD Complaint: other (auditory and visual hallucinations) -: days(s) Associated Psychiatric Symptoms: auditory hallucinations, visual hallucinations History of same: Yes Quality: intermittent Improves With: none Worsens With: none Context: not taking psychiatric Associated Symptoms: denies other symptoms (allergies does not report any intercurrent illness) - Related Data Previous Rx's Medication Instructions Recorded Last Taken Type Benztropine [Cogentin] 0.5 mg PO HS #14 tablet 08/08/17 Unknown Rx Divalproex ER [Depakote ER] 500 mg PO BID #30 tablet 08/08/17 Unknown Rx Paliperidone [Invega] 6 mg PO QHS #7 tab.er.24 08/08/17 Unknown Rx Allergies Allergy/AdvReac Type Severity Reaction Status Date / Time No Known Allergies Allergy Unverified 07/03/17 12:46 ED Review of Systems ROS: Stated complaint: MENTAL HEALTH EVALUATION Other details as noted in HPI Comment: Unobtainable due to pts medical conditions ED Past Medical Hx - Past Medical History Previous Medical History?: Yes Hx Psychiatric Treatment: Yes - Surgical History Past Surgical History?: No - Social History Smoking Status: Never Smoker Substance Use Type: None - Medications Home Medications: Home Medications Medication Instructions Recorded Confirmed Last Taken Type Benztropine [Cogentin] 0.5 mg PO HS #14 tablet 08/08/17 Unknown Rx Divalproex ER [Depakote ER] 500 mg PO BID #30 tablet 08/08/17 Unknown Rx Paliperidone [Invega] 6 mg PO QHS #7 tab.er.08/08/17 Unknown Rx ED Physical Exam - General Limitations: No Limitations General appearance: alert, in no apparent distress - Head Head exam: Present: atraumatic, normocephalic - Eye Eye exam: Present: normal appearance. Absent: scleral icterus - ENT ENT exam: Present: mucous membranes moist - Neck Neck exam: Present: normal inspection. Absent: tenderness, meningismus - Respiratory Respiratory exam: Present: normal lung sounds bilaterally. Absent: respiratory distress - Cardiovascular Cardiovascular Exam: Present: regular rate, normal rhythm. Absent: systolic murmur, diastolic murmur, rubs, gallop - GI/Abdominal GI/Abdominal exam: Present: soft, normal bowel sounds. Absent: distended, tenderness, guarding, rebound, rigid - Rectal Rectal exam: Present: deferred - Extremities Exam Extremities exam: Present: normal inspection - Back Exam Back exam: Present: normal inspection - Neurological Exam Neurological exam: Present: alert, oriented X3, CN II-XII intact. Absent: motor sensory deficit - Psychiatric Psychiatric exam: Present: agitated, anxious - Skin Skin exam: Present: warm, dry, intact, normal color. Absent: rash ED Course Vital Signs 11/24/17 08:25 Temperature 97.8 F Pulse Rate 98 H Respiratory 16 Rate Blood Pressure 135/90 O2 Sat by Pulse 99 Oximetry - Reevaluation(s) Reevaluation #1: Patient was placed on a 1013. Security was required to administer 10 mg of Geodon. He did receive this. On reexamination he was bit calmer but still seemed to be actively psychotic. I spoke to Dr. Siddiqui and mental health counselor concerning placement and stabilization. I will place him on IM Geodon when necessary with by mouth as well should he accept oral medication. 11/24/17 15:24 ED Medical Decision Making - Lab Data Result diagrams: 11/24/17 08:15 11/24/17 08:15 Laboratory Results - last 24 hr 11/24/17 11/24/17 11/24/17 08:15 08:15 08:15 WBC 7.8 RBC 5.20 H Hgb 15.7 H Hct 47.1 H MCV 91 MCH 30 MCHC 33 RDW 14.1 Plt Count 300 Lymph % (Auto) 34.8 [place] % (Auto) 10.6 H Eos % (Auto) 0.7 Baso % (Auto) 0.8 Lymph # 2.7 [place] # 0.8 Eos # 0.1 Baso # 0.1 Seg Neutrophils % 53.1 Seg Neutrophils # 4.1 Sodium 138 Potassium 3.7 Chloride 95.3 L Carbon Dioxide 24 Anion Gap 22 BUN 14 Creatinine 0.9 Estimated GFR > 60 BUN/Creatinine Ratio 16 Glucose 100 Calcium 9.6 Plasma/Serum Alcohol < 0.01 Critical care attestation.: If time is entered above; I have spent that time in minutes in the direct care of this critically ill patient, excluding procedure time. ED Disposition Clinical Impression: Acute psychosis Schizophrenia Qualifiers: Schizophrenia type: unspecified Qualified Code(s): F20.9 - Schizophrenia, unspecified Disposition: DC/TX-65 PSY HOSP/PSY UNIT Is pt being admited?: No Does the pt Need Aspirin: No Condition: Stable Referrals: PRIMARY CAREMD [Primary Care Provider] - 3-5 Days Forms: Accompanied Note Time of Disposition: 15:27
[2017-11-24] MEDS ORDERED: GEODON IM ONE ×2 (13:09→13:13)
[2017-11-24] MEDS ORDERED: WATER FOR INJ (PF) 10 ML ONE (13:09)
[2017-11-24] MEDS ORDERED: GEODON IM PRN (15:28)
[2017-11-24] MEDS ORDERED: MILK OF MAGNESIA PO PRN (15:28)
[2017-11-24] MEDS ORDERED: TYLENOL PO PRN (15:28)
[2017-11-24] MEDS ORDERED: ALUM-MAG HYDROX-SIMETH 200-200-20MG/5ML PO PRN (15:28)
[2017-11-24 21:12] LABS: Bilirubin,Urine NEG (Negative); Blood,Urine LG (Negative); Color,Urine Yellow (Yellow); Mucus,Urine FEW /HPF; Nitrite,Urine NEG (Negative); Protein,Urine <15 mg/dL mg/dL (Negative); RBC,Urine < 1.0 /HPF (0.0-6.0)
[2017-11-24 21:26] LABS: Benzodiazepines Screen,Urine PRESUMPTIVE NEGATIVE; Cocaine Screen,Urine PRESUMPTIVE NEGATIVE; Methadone Screen,Urine PRESUMPTIVE NEGATIVE; Opiate Screen,Urine PRESUMPTIVE NEGATIVE
[2017-11-24 21:39] LABS: Amphetamine Screen,Urine PRESUMPTIVE POSITIVE; Cannabinoid Screen,Urine PRESUMPTIVE POSITIVE
[2017-11-24] MEDS: GEODON PO SCH (23:21)
[2017-11-25] MEDS: GEODON PO SCH (10:18)
--- NOTE | 2017-11-25 12:04 | Consultation ---
History of Present Illness - Reason for Consult Consult date: 11/25/17 Reason for consult: Mental Healthe Evaluation Requesting physician: JAVI GENTILE - Chief Complaint Chief complaint: "I am okay" - History of Present Psychiatric Illness 22 y.o. AA male presenting to [facility] for bizarre behavior by his mother. This patient is known to me. Per the record the patient was experiencing AVH's on admission and was given a prn medication for agitation. Today the patient is calm and cooperative, but disorganized during the assessment. He stated using MDMA with his friends prior to going home yesterday. He stated that he had no slept for "3 days" prior to experiencing the MDMA. He continued to state that he was "okay" to go home when he was asked several questions about his mental state. He was redirected several times to keep him on topic during the interview. He denies SI/HI's and AVH's. He denies a poor appetite and alcohol consumption (etoh). He stated noting being compliant with his medications. The patient stated that he received the Invega injection several months ago. Medications and Allergies Allergies Allergy/AdvReac Type Severity Reaction Status Date / Time No Known Allergies Allergy Unverified 07/03/17 12:46 Home Medications Medication Instructions Recorded Confirmed Last Taken Type Benztropine [Cogentin] 0.5 mg PO HS #14 tablet 08/08/17 Unknown Rx Divalproex ER [Depakote ER] 500 mg PO BID #30 tablet 08/08/17 Unknown Rx Paliperidone [Invega] 6 mg PO QHS #7 tab.er.24 08/08/17 Unknown Rx Active Meds: Active Medications Acetaminophen (Tylenol) 650 mg PO Q4HR PRN PRN Reason: Pain MILD(1-3)/Fever >100.5/GARCIA Al Hydrox/Mg Hydrox/Simethicone (Alum-Mag Hydrox-Simeth [id number]/5ml) 30 ml PO Q4HR PRN PRN Reason: Indigestion Magnesium Hydroxide (Milk Of Magnesia) 30 ml PO Q12HR PRN PRN Reason: Constipation Ziprasidone (Geodon) 40 mg PO BID [facility] Last Admin: 11/25/17 10:18 Dose: 40 mg Ziprasidone (Geodon) 10 mg IM Q12H PRN PRN Reason: Agitation Past psychiatric history - Past Medical History Past Medical History: No medical history Past Surgical History: No surgical history - past Psychiatric treatment and history psychiatric treatment history: Seen outpatient at [facility]. He cannot confirm or deny a fam psy hx. - Social History Social history: lives with family Mental Status Exam - Vital signs Last Vital Signs Temp 98.8 F 11/24/17 23:55 Pulse 100 H 11/24/17 23:55 Resp 18 11/24/17 23:55 BP 136/91 11/24/17 23:55 Pulse Ox 98 11/24/17 23:55 - Exam Narrative exam: MSE: Appearance: calm, cooperative Behavior: regular eye contact Speech: regular rate and tone Mood: "okay" Affect: congruent to mood Thought Process: circumstantial Thought Content: denies SI/HI's and AVH's, disorganized Motor Activity: ambulatory Cognition: A/O x 3 Insight: variable Judgment: variable Results Result Diagrams: 11/24/17 08:15 11/24/17 08:15 Abnormal lab results 11/24/17 Range/Units 08:15 Salicylates < 0.3 L (2.8-20.0) mg/dL All other labs normal. Assessment and Plan Assessment and plan: Impression: Unspecified Mood DO. Substance Use DO (amphetamines/marijuana). Today the patient is calm and cooperative, but disorganized during the assessment. Patient positive for amphetamines and marijuana. DDx: Bipolar DO, Substance Induced Mood/Psychotic DO Recommendation/Plan: Continue 1013 with placement to inpatient psy services. Start Risperdal 0.5 mg PO HS for mood/psychosis and Depakote 500 mg PO BID for mood. Discusses possible metabolic side effects of Risperdal with patient.
[2017-11-25 12:47] LABS: Alanine Aminotransferase 12 units/L (7-56); Lipase 20 units/L (13-60)
[2017-11-25] MEDS: RisperDAL PO SCH (22:06)
[2017-11-26] MEDS: RisperDAL PO SCH (22:20)
--- NOTE | 2017-11-27 13:32 | Progress Note ---
Subjective - Reason for Consult Consult date: 11/27/17 Reason for consult: Psychiatry Follow-up - Chief Complaint Chief complaint: "Hello" 22 y.o. AA male presenting to [facility] for bizarre behavior by his mother. This patient is known to me. Today the patient is calm and cooperative during the assessment. He stated that he felt "much better" today than yesterday. He stated that he will not use "drugs" again and will stay on his medications when discharged. He denies SI/HI's and AVHs'. He denies any side effect of his medications. Mental Status Exam - Vital signs Last Vital Signs Temp 98.7 F 11/27/17 10:00 Pulse 58 L 11/27/17 10:00 Resp 18 11/27/17 12:33 BP 118/81 11/27/17 10:00 Pulse Ox 100 11/27/17 12:33 - Exam Narrative exam: MSE: Appearance: calm, cooperative Behavior: regular eye contact Speech: regular rate and tone Mood: "okay" Affect: congruent to mood Thought Process: circumstantial Thought Content: denies SI/HI's and AVH's Motor Activity: ambulatory Cognition: A/O x 3 Insight: fair Judgment: fair Assessment and Plan Impression: Unspecified Mood DO. Substance Use DO (amphetamines/marijuana). Today the patient is calm and cooperative during the assessment. Patient positive for amphetamines and marijuana. DDx: Bipolar DO, Substance Induced Mood/Psychotic DO Recommendation/Plan: Evaluate 1013 in 24 hours to determine proper dispo. Continue Risperdal 0.5 mg PO HS for mood/psychosis and Depakote 500 mg PO BID for mood. Discusses possible metabolic side effects of Risperdal with patient.
[2017-11-27] MEDS: RisperDAL PO SCH (21:45)
[2017-11-28 11:13] VITALS: BP 106/71
--- NOTE | 2017-11-28 13:06 | Progress Note ---
Subjective - Reason for Consult Consult date: 11/28/17 Reason for consult: Psychiatry Follow-up - Chief Complaint Chief complaint: "Will I be leaving" 22 y.o. AA male presenting to [facility] for bizarre behavior by his mother. This patient is known to me. Today the patient is calm and cooperative during the assessment. He stated that he will stop using recreational drugs once discharged. Per the staff, no behavioral issues overnight by the patient. He stated that he will stay compliant on his medications. He denies SI/HI's and AVH 's. He denies any side effects of medications. Mental Status Exam - Vital signs Last Vital Signs Temp 98 F 11/28/17 11:06 Pulse 55 L 11/28/17 11:06 Resp 18 11/28/17 11:06 BP 106/71 11/28/17 11:06 Pulse Ox 98 11/28/17 11:06 - Exam Narrative exam: MSE: Appearance: calm, cooperative Behavior: regular eye contact Speech: regular rate and tone Mood: "okay" Affect: congruent to mood Thought Process: logical Thought Content: denies SI/HI's and AVH's Motor Activity: ambulatory Cognition: A/O x 3 Insight: appropriate Judgment: appropriate Assessment and Plan Impression: Unspecified Mood DO. Substance Use DO (amphetamines/marijuana). Today the patient is calm and cooperative during the assessment. Patient positive for amphetamines and marijuana. DDx: Bipolar DO, Substance Induced Mood/Psychotic DO Recommendation/Plan: Rescind 1013. Continue Risperdal 0.5 mg PO HS for mood/ psychosis and Depakote 500 mg PO BID for mood. Discusses possible metabolic side effects of Risperdal with patient. Patient was informed to follow up at [facility] by 30 Nov 2017 for lab draw (VA Levels) and for outpatient psy services.
--- NOTE | 2017-11-28 18:19 | Emergency Department Report ---
Blank Doc - Documentation Documentation: Patient has been in the ER for several days and has received multiple evaluations by mental health and psychiatrist. Psychiatric notes today reviewed. 1013 will be rescinded as recommended. As per psych recommendation I will write for a continuation of Risperdal 0.5 mg by mouth daily at bedtime, Depakote 500 milligrams twice a day as recommended. Patient is to follow-up at the [facility] by November 30.
== END 2017-11-28 18:42 ==
LOC: ED 07:33 → EEVIPCON 07:33 → ED 11-28 18:42
DX: F20.9 Schizophrenia, unspecified (principal); F23 Brief psychotic disorder
CPT/HCPCS: 36415; 80048; 80164; 80307; 81001; 82150; 83690; 84075; 84450; 84460; 85025; 96372; 99285; G0480; J3486; 80320

== ENCOUNTER 2018-08-11 14:04 | Emergency (ER) | payer SELFPAY ==
[2018-08-11 14:18] VITALS: BP 112/63
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
[2018-08-11 15:17] LABS: Basophils % (Auto) 0.7 % (0.0-1.8); Eosinophils # (Auto) 0.1 K/mm3 (0.0-0.4); Eosinophils % (Auto) 2.3 % (0.0-4.3); Hemoglobin 14.2 gm/dl (11.8-15.2); Lymphocytes # (Auto) 1.3 K/mm3 (1.2-5.4); Mean Corpuscular HGB Conc 33 % (32-34); Mean Corpuscular Hemoglobin 30 pg (28-32); Mean Corpuscular Volume 92 fl (84-94); Monocytes # (Auto) 0.4 K/mm3 (0.0-0.8); Monocytes % (Auto) 9.5 % (0.0-7.3); Platelet Count 217 K/mm3 (140-440); Red Blood Count 4.68 M/mm3 (3.65-5.03); Red Cell Distribution Width 14.3 % (13.2-15.2)
[2018-08-11 15:30] LABS: BUN/Creatinine Ratio 12; Blood Urea Nitrogen 11 mg/dL (9-20); Calcium 9.1 mg/dL (8.4-10.2); Hemolysis Index 11
== END 2018-08-11 15:35 | disposition left against medical advice (07) ==
LOC: ED 14:04
DX: F20.9 Schizophrenia, unspecified (principal); F17.200 Nicotine dependence, unspecified, uncomplicated
CPT/HCPCS: 36415; 80048; 85025; 99283; G0480; 80320